=== PATIENT | male | born 1985 | race Caucasian/White ===

== ENCOUNTER 2019-04-09 08:33 | Emergency (ER) | payer OTHER, SELFPAY ==
[2019-04-09 08:34] VITALS: BP 153/87; PULSE 72; RESP 16; TEMP 36.4; O2SAT 98; BMI 28.5
--- NOTE | 2019-04-09 08:43 | RAD_ITS ---
STUDY: X-RAY - RIGHT FOOT CLINICAL: Male, 34 years old. Worsening pain and bruising following injury. TECHNIQUE: 3 view(s) of the foot. COMPARISON: None. FINDINGS: There is a small plantar calcaneal spur. Normal visualized subtalar, talonavicular, calcaneocuboid, tarsal and tarsometatarsal articulations. Normal metatarsi. Normal metatarsophalangeal joint of the great toe. Normal tibial and fibular sesamoid bones. Normal interphalangeal joint of the great toe. Normal phalanges of the great toe. Normal second through fifth metatarsophalangeal joints. Normal interphalangeal joints and phalanges of the lesser toes. Soft tissue swelling. RAD/Foot min 3 Views IMPRESSION: Soft tissue swelling. Electronically Signed: Andreas Murphy, at 9:39 EST , Service support ,
--- NOTE | 2019-04-09 08:44 | ED.VIS.GEN ---
History of Present Illness Chief Complaint: Lower Extremity Injury Detail of Chief Complaint: Right foot injury Informant: Patient Onset: Days - 2 days Context: Gradual Onset Current Severity: Moderate Maximum Severity: Moderate Narrative: Patient presents with injury to his right foot 2 days ago. He was working on a car when a part of the car that he was trying to remove fell from approximately 18 inches off the ground onto his right foot. He was wearing boots at the time. He has an abrasion of the top of his foot and states he continues to have pain and swelling. He has been using ice and elevation without significant improvement. Past Medical History - Allergies and Home Meds Allergies/Adverse Reactions: Allergies No Known Allergies Allergy (Verified 04/09/19 08:34) Primary Care Physician: Rosalva Llanos,Out of [Primary Care Provider] - Prior records reviewed: Yes Past Medical History: None Surgical History: no surgical history Lives: Spouse/ Significant Other Smoking Status: Current every day smoker Review of Systems General: Denies: Chills, Fever Eyes: Denies: Visual changes - bilaterally ENT: Denies: Bilateral ear pain Cardiovascular: Denies: Chest pain Respiratory: Denies: Dyspnea, Cough Gastrointestinal: Denies: Abdominal pain, Nausea, Vomiting, Diarrhea Genitourinary: Denies: Dysuria Musculoskeletal: Reports: Extremity Pain Skin: Reports: Abrasions Neurological: Denies: Headache, Parasthesia Hematologic: Denies: Easy bruising Allergy: Denies: Uticaria Physical Exam Vital Signs/Narrative: Vital Signs Temp Pulse Resp BP Pulse Ox 04/09/19 08:34 97.5 F L 72 16 153/87 H 98 Inital Vital Signs reviewed: Yes General: Well nourished, Well developed Head: Normocephalic ENT: Moist mucous membranes Neck: Supple Cardiovascular: Regular rate Respiratory: No distress Abdomen: Soft, Nontender Extremities: - - 2 cm round abrasion over the dorsal right foot. Mild tenderness over the midfoot. Minimal edema. He is able to dorsi and plantarflex, but does have pain with dorsiflexion. Strong pulses and normal cap refill are noted. Neurological: Alert, Oriented x3 Psychological: Normal affect Diagnostic/Tx/Re-eval Right foot x-ray per my review reveals no acute fracture. - Medical Decision Making Test results discussed with the patient. He will be written for naproxen as well as prednisone as I believe he is at degree of tendinitis at this point. He will also be given some Pepcid. He will be referred to orthopedics if not improved. There is no evidence of compartment syndrome. ED Disposition - Plan for ED Patient: Disposition: Home or Assisted Living Diagnosis: Crush injury of right foot Instructions: CRUSH INJURY, Foot/Toe Prescriptions: Prednisone [Deltasone] 40 mg PO DAILY #10 tablet Naproxen [Naprosyn] 500 mg PO BID PRN PRN #20 tablet PRN Reason: Pain Score 1-10/10 Famotidine [Pepcid] 20 mg PO BID #28 tablet Referrals: [facility] Doctor,Out of [Primary Care Provider] - Viridiana Jordan DO [STAFF PHYSICIAN] - 1 Week if not improving
== END 2019-04-09 10:01 | disposition home or self-care (01) ==
LOC: ED 09:22
PROVIDERS: Emergency Provider Emergency Medicine
DX: S97.81XA Crushing injury of right foot, initial encounter (principal); S90.811A Abrasion, right foot, initial encounter; W23.0XXA Caught, crushed, jammed, or pinched between moving objects, initial encounter; Y93.9 Activity, unspecified; Y92.9 Unspecified place or not applicable; Y99.9 Unspecified external cause status; F17.200 Nicotine dependence, unspecified, uncomplicated
CPT/HCPCS: 73630; 99282

== ENCOUNTER 2019-04-28 21:56 | Emergency (ER) | payer OTHER, SELFPAY ==
[2019-04-28 21:57] VITALS: BP 154/80; PULSE 100; RESP 16; TEMP 36.6; O2SAT 94; BMI 32.4
--- NOTE | 2019-04-28 22:34 | ED.DCSUM_ITS ---
History of Present Illness Chief Complaint: Upper Extremity Injury Informant: Patient Onset: Weeks - 1-2 Context: Gradual Onset Timing: Continuous Quality of Pain: Aching Location: right elbow, wrist Current Severity: Severe Maximum Severity: Severe Worsened by: bending elbow, bending wrist, supination/pronation Relieved by: remaining still Associated Symptoms: Parasthesia - few to fingertips, not sure which ones. Negative for: Weakness, Loss of Funtion Narrative: Patient is a water plant maintenance mechanic. He is ambidextrous. He has been having significant discomfort in his elbow and wrist of his right upper extremity only. Since he has lots of calluses from working with his hands, he has difficulty sensing things well in his fingers anyway but he thinks he has had some tingling off and on. He thinks right now it is in his small finger. He denies any direct trauma/injury. No sudden onset of any symptoms. Started with his elbow. Past Medical History - Allergies and Home Meds Allergies/Adverse Reactions: Allergies No Known Allergies Allergy (Verified 04/09/19 08:34) Primary Care Physician: Care Physician,No Primary [Primary Care Provider] - Surgical History: no surgical history Smoking Status: Current every day smoker Review of Systems General: Denies: Chills, Fever, Sweats Musculoskeletal: Reports: Swelling - right forearm, Extremity Pain Skin: Denies: Rash, Wounds Neurological: Reports: Parasthesia. Denies: Headache, Weakness Physical Exam Vital Signs/Narrative: Vital Signs Temp Pulse Resp BP Pulse Ox 04/28/19 21:57 98 F 100 16 154/80 H 94 General: Well nourished, Well developed Head: Normocephalic, Atraumatic Extremeties: Right upper extremity: Tender at the right lateral epicondyles and at the common extensor tendon origin. Significant increase in pain when extending at the wrist against resistance. No significant discomfort when flexing the right wrist against resistance. No tenderness at the medial epicondyle. All forearm compartments soft and nondistended. Negative Tinel's at the ulnar and median ulnar tunnels. Normal thenar and hyperthenar eminences. Full range of motion of the elbow and wrist, but has significant wrist pain with supination/pronation. No deformities. Skin: Normal color, No rash, No Trauma Neurological: Alert, Oriented x3, Cranial nerves II-XII grossly intact, Normal Strength, Normal Sensation, Normal Gait Psychological: Normal affect, Normal Mood Diagnostic/Tx/Re-eval Clinical Impression(s) from Imaging Studies Elbow X-Ray 04/28/19 22:37 IMPRESSION: Normal x-ray examination of the elbow. Electronically Signed: Presley RoblesDO at 22:54 EST Tel [phone], Service support , Wrist X-Ray 04/28/19 22:37 IMPRESSION: Normal x-ray examination of the wrist. Electronically Signed: Presley RoblesDO at 22:55 EST Tel [phone], Service support , - Medical Decision Making X-rays are normal and show no joint effusions of either the elbow or the wrist. I suspect this is mostly tendinitis. He was given an injection of Toradol, a wrist splint to use as needed, and advised to get a tennis elbow forearm strap. Prescribed NSAIDs and advised to follow-up with sports medicine if needed. ED Disposition - Plan for ED Patient: Disposition: Home or Assisted Living Diagnosis: Lateral epicondylitis (tennis elbow), Tendonitis of wrist, right Instructions: Tendonitis, Tennis Elbow Prescriptions: Naproxen [Naprosyn] 500 mg PO BID PRN #20 tab Transmission Status: Pending to [id number] Referrals: Theron Mabry DO [STAFF PHYSICIAN] - 10-14 Days if not better (sports medicine)
--- NOTE | 2019-04-28 22:37 | RAD_ITS ---
STUDY: X-RAY - RIGHT ELBOW REASON FOR EXAM: Male, 34 years old. Pain for one week. TECHNIQUE: 3 view(s) of the elbow. COMPARISON: None. FINDINGS: Normal visualized humerus, radius and ulna. Normal radiocapitellar and ulnotrochlear articulations. There is no acute fracture, dislocation or destructive osseous pathology. The soft tissue structures are unremarkable. RAD/Elbow min 3 Views IMPRESSION: Normal x-ray examination of the elbow. Electronically Signed: Presley Robles DO at 22:54 EST Tel [phone], Service support ,
--- NOTE | 2019-04-28 22:37 | RAD_ITS ---
STUDY: X-RAY - RIGHT WRIST REASON FOR EXAM: Male, 34 years old. Pain for one week. TECHNIQUE: 3 view(s) of the wrist were obtained. COMPARISON: None. FINDINGS: Normal visualized distal radius and ulna. Normal radiocarpal articulation. Normal distal radioulnar articulation. Normal carpal bones. Normal carpal articulations. Normal carpometacarpal articulation of the thumb. Normal second through fifth carpometacarpal articulations. Normal visualized metacarpal bones. The soft tissue structures are unremarkable. RAD/Wrist min 3 Views IMPRESSION: Normal x-ray examination of the wrist. Electronically Signed: Presley Robles DO at 22:55 EST Tel [phone], Service support ,
[2019-04-28] MEDS: Ketorolac 60 MG/2 ML Vial IM (22:51)
[2019-04-28 23:46] VITALS: RESP 15
== END 2019-04-28 23:46 | disposition home or self-care (01) ==
PROVIDERS: Emergency Provider Emergency Medicine
DX: M77.11 Lateral epicondylitis, right elbow (principal); M77.9 Enthesopathy, unspecified; F17.200 Nicotine dependence, unspecified, uncomplicated
CPT/HCPCS: 73080; 73110; 96372; 99283

== ENCOUNTER 2019-07-07 14:40 | Emergency (ER) | payer OTHER, SELFPAY ==
[2019-07-07 14:41] VITALS: BP 140/78; PULSE 88; RESP 15; TEMP 37.2; O2SAT 97; BMI 32.2
--- NOTE | 2019-07-07 15:16 | CT_ITS ---
STUDY: CT ABDOMEN AND PELVIS WITH CONTRAST REASON FOR EXAM: Male, 34 years old. LLQ PAIN, LT KIDNEY PAIN, PT STATES HE HAS A MASS IN HIS LLQ RADIATION DOSAGE (If Supplied By Facility): CTDIvol = ( 13.04 ) mGy, DLP = ( 1056.79 ) mGycm TECHNIQUE: Transaxial images were obtained from the dome of the diaphragm to the symphysis pubis with oral contrast. Oral and amp; IV Gastrografin and amp; 100mL Isovue-300 was administered. Sagittal and coronal images were reconstructed. Individualized dose optimization techniques were used for this CT. COMPARISON: None. FINDINGS: The visualized lung bases are unremarkable. The visualized portions of the heart are within normal limits. Normal liver. Normal gallbladder and extrahepatic biliary system. Normal spleen. Normal pancreas. Normal bilateral adrenal glands. Normal right kidney. Normal left kidney. There are tiny bilateral nonobstructing nephroliths. Normal visualized stomach. Normal small intestine. Normal colon. The appendix is visualized and appears normal. Normal abdominal aorta. Normal inferior vena cava. Normal retroperitoneum. Normal urinary bladder. Unremarkable prostate. Incidentally noted is several enlarged left inguinal lymph nodes with surrounding mild inflammation. Normal osseous structures. CT/Abdomen/Pelvis WITH Contrast IMPRESSION: No acute intra-abdominal or intrapelvic findings. Several mildly enlarged left inguinal lymph nodes with surrounding mild inflammation. Electronically Signed: Onel Hi DO at 17:43 EST Tel , Service support ,
--- NOTE | 2019-07-07 15:16 | ED.VIS.GEN ---
History of Present Illness Chief Complaint: Flank Pain Informant: Patient Onset: Days - 2 days ago Current Severity: Mild Maximum Severity: Moderate Narrative: Patient presents with left lower quadrant pain for the past 2 days. He states he woke up 2 days ago with a burning sensation in the left lower back. He has mild pain in the left lower quadrant of his abdomen and noted a firm lump along his left groin line. He is been able to urinate and have bowel movements without difficulty. He denies any recent injury. No known hernias. He denies fever or chills. Past Medical History - Allergies and Home Meds Allergies/Adverse Reactions: Allergies No Known Allergies Allergy (Verified 07/07/19 14:41) Primary Care Physician: Care Physician,No Primary [Primary Care Provider] - Past Medical History: None Surgical History: no surgical history Lives: Spouse/ Significant Other Smoking Status: Current every day smoker Review of Systems General: Denies: Chills, Fever Eyes: Denies: Visual changes - bilaterally ENT: Denies: Bilateral ear pain Cardiovascular: Denies: Chest pain Respiratory: Denies: Dyspnea, Cough Gastrointestinal: Reports: Abdominal pain. Denies: Nausea, Vomiting, Diarrhea, Constipation Musculoskeletal: Reports: Back pain - Left lower back Skin: Denies: Rash Neurological: Denies: Headache Hematologic: Denies: Easy bruising Allergy: Denies: Uticaria Physical Exam Vital Signs/Narrative: Vital Signs Temp Pulse Resp BP Pulse Ox 07/07/19 14:41 99.0 F 88 15 140/78 H 97 Inital Vital Signs reviewed: Yes General: Well nourished, Well developed Head: Normocephalic ENT: Moist mucous membranes Neck: Supple Cardiovascular: Regular rate, Regular rhythm Respiratory: No distress, CTA bilaterally Abdomen: Soft, Tender - Mild tenderness in the left lower quadrant., - - No palpable hernias noted.. Negative for: Guarding, Rebound tenderness Extremities: Nontender Skin: Normal color, No rash Neurological: Alert, Oriented x3 Psychological: Normal affect Diagnostic/Tx/Re-eval Impressions Abdomen/Pelvis CT 07/07/19 15:16 IMPRESSION: No acute intra-abdominal or intrapelvic findings. Several mildly enlarged left inguinal lymph nodes with surrounding mild inflammation. Electronically Signed: Onel Hi DO at 17:43 EST Tel , Service support , 07/07/19 15:16 Abdomen/Pelvis WITH Contrast [CT] Stat Laboratory Results 07/07/19 07/07/19 07/07/19 15:25 15:35 15:35 WBC 7.7 RBC 5.15 Hgb 16.1 Hct 47.7 MCV 92.6 MCH 31.3 MCHC 33.8 RDW Std Deviation 39.9 RDW Coeff of Hilario 11.7 Plt Count 213 MPV 10.5 Immature Gran % (Auto) 0.100 Neut % (Auto) 64.9 Lymph % (Auto) 22.2 Wise % (Auto) 9.2 Eos % (Auto) 3.0 Baso % (Auto) 0.6 Absolute Neuts (auto) 5.0 Absolute Lymphs (auto) 1.71 Nucleated RBC % 0 Sodium 138 Potassium 3.4 L Chloride 106 Carbon Dioxide 26.0 Anion Gap 6 BUN 15 Creatinine 1.14 Estim Creat Clear Calc 101.16 Est GFR (MDRD) Af Amer 95 Est GFR (MDRD) Non-Af 79 BUN/Creatinine Ratio 13.2 Glucose 88 Calcium 9.0 Urine Color Yellow Urine Clarity Clear Urine pH 6.0 Ur Specific [place] 1.010 Urine Protein Negative Urine Glucose (UA) Normal Urine Ketones Negative Urine Occult Blood Negative Urine Nitrite Negative Urine Bilirubin Negative Urine Urobilinogen Normal Ur Leukocyte Esterase Negative Urine RBC 0 SEEN Urine WBC 0-5 SEEN Ur Squamous Epith Cells 0 SEEN Urine Bacteria 0 SEEN Urine Mucus 0 SEEN - Medical Decision Making Patient was given morphine, Zofran, IV fluids. On repeat evaluation he is resting comfortably. CT results are discussed with him. He does have evidence of lymph node inflammation in the left groin, but no focal intra-abdominal process noted. There is no evidence of hernia. Patient continue to monitor his symptoms and return if symptoms worsen or if any other concerns arise. ED Disposition - Plan for ED Patient: Disposition: Home or Assisted Living Diagnosis: Lymphadenopathy, Flank pain Instructions: FLANK PAIN, Uncertain Cause Referrals: David Ospina MD [STAFF PHYSICIAN] - As Needed
[2019-07-07 15:32] LABS: Bacteria 0 SEEN /hpf (None Seen); Mucous, Urine 0 SEEN /hpf (<or=2+); Red Blood Cells-Urine 0 SEEN /hpf (0-5); Squamous Epithelial Cells - UA 0 SEEN /hpf (0-5)
[2019-07-07 15:36] LABS: Color, Urine Yellow (Yellow); Glucose, Dipstick Normal (Normal); Ketone-Dipstick Negative (Negative); Leukocyte Esterase-Dipstick Negative /ul (Negative); Nitrite-Dipstick Negative (Negative); Occult Blood-Urine Negative /ul (Negative); Protein-Dipstick Negative (Negative); Urine Bilirubin Dipstick Negative (Negative); Urine Clarity Clear (Clear); Urine Urobilinogen Normal (Normal)
[2019-07-07] MEDS: 0.9% Normal Saline 1,000 ML 150 ML IV (15:37)
[2019-07-07] MEDS: Ondansetron 4 MG/2 ML Vial IV (15:37)
[2019-07-07] MEDS: Morphine 4 MG/ML Syringe IV (15:37)
[2019-07-07 15:51] LABS: Absolute Lymphocyte Count 1.71 X10^3/uL (0.83-4.51); Basophil# 0.05 X10^3/uL; Basophil% 0.6 % (0-1); Eosinophil# 0.23 X10^3/uL; Hematocrit 47.7 % (40-54); Hemoglobin 16.1 g/dL (13.0-16.5); Lymphocyte # 1.71 X10^3/ul (4.0); Lymphocyte % 22.2 % (19-41); Mean Corp Hgb Conc 33.8 g/dL (32-36); Mean Corpuscular Hgb 31.3 pg (27.0-32.0); Mean Corpuscular Volume 92.6 fL (80-94); Mean Platelet Vol. 10.5 fl (6.2-12.0); Monocyte# 0.71 X10^3/uL; Monocyte% 9.2 % (0-10); NRBC Flagged by Analyzer 0 % (0-5); Neutrophil # 5.01 X10^3/uL (2.7-7.7); Neutrophil % 64.9 % (47-70); Platelet Count 213 K/mm3 (150-450); RBC Distribution Width CV 11.7 % (11.6-14.6); RBC Distribution Width SD 39.9 fl (35.1-43.9); Red Blood Count 5.15 M/mm3 (4.6-6.2); White Blood Count 7.7 K/mm3 (4.4-11.0)
[2019-07-07 15:59] LABS: White Blood Cells 0-5 SEEN /hpf (0-5)
[2019-07-07 16:03] LABS: Anion Gap 6 (5-15); BUN 15 mg/dL (7-18); BUN/Creat Ratio 13.2 RATIO (10-20); Chloride 106 mmol/L (98-107); Creatinine, Serum 1.14 mg/dL (0.70-1.30); EST Glomerular Filtration Rate 79 mL/min (>60); Est Glom Filt Rate - Afr Amer 95 mL/min (>60); Estimated Creatinine Clearance 101.16 ml/min; Glucose 88 mg/dL (74-106); Potassium 3.4 mmol/L (3.5-5.1); Sodium Level 138 mmol/L (136-145)
[2019-07-07 17:23] VITALS: RESP 18
== END 2019-07-07 18:09 | disposition home or self-care (01) ==
PROVIDERS: Emergency Provider Emergency Medicine
DX: R10.9 Unspecified abdominal pain (principal); R59.0 Localized enlarged lymph nodes; F17.200 Nicotine dependence, unspecified, uncomplicated
CPT/HCPCS: 74177; 80048; 81001; 85025; 96361; 96374; 96375; 99283; J7030; Q9967; J2405